=== PATIENT | male | born 1945 | race Caucasian/White ===

== ENCOUNTER 2018-12-18 09:10 | Emergency (ER) | payer MEDICARE, BC ==
[2018-12-18] MEDS ORDERED: Aspirin 81 MG Tab.Chew PO ONE (09:43)
--- NOTE | 2018-12-18 09:45 | EDM.PDOC ---
ED HPI GENERAL MEDICAL PROBLEM - General Chief Complaint: Chest Pain Stated Complaint: MILD CHEST PAIN Time Seen by Provider: 12/18/18 09:38 Source of Information: Reports: Patient, Family, RN Notes Reviewed History Limitations: Reports: No Limitations - History of Present Illness INITIAL COMMENTS - FREE TEXT/NARRATIVE: 73-year-old gentleman presents to emergency department today complaint of chest pain, he states his chest pain on and off for approximately 2 weeks at times is worse than others, does not use tobacco products strong family history of coronary artery disease brother with the bypass surgery in his 40s he describes no nausea no vomiting no shortness of breath admits to no cardiac issues in the past Chest Pain Score (Numeric/FACES): 2 - Related Data Allergies Allergy/AdvReac Type Severity Reaction Status Date / Time codeine Allergy Insomnia Verified 12/18/18 09:21 Home Meds: Home Meds Cholecalciferol (Vitamin D3) [Vitamin D3] 1,000 units PO DAILY 10/29/14 [History ] Fish Oil/[place]chance-3 Fatty Acids [Fish Oil 1,000 MG] 1 cap PO BID 10/29/14 [History] Loratadine 10 mg PO DAILY PRN 10/29/14 [History] Quinapril HCl [Accupril] 5 mg PO DAILY 10/29/14 [History] Rosuvastatin [Crestor] 5 mg PO BEDTIME 10/29/14 [History] Suvorexant [Belsomra] 10 mg PO BEDTIME PRN 10/29/14 [History] Vit C/E/Zn/Coppr/Lutein/Zeaxan [Preservision Areds 2 Softgel] 1 cap PO BID 10/29 [History] diphenhydrAMINE [Benadryl] 25 mg PO BEDTIME PRN 10/29/14 [History] Melatonin 5 mg PO BEDTIME 12/18/18 [History] Terazosin [Hytrin] 1 mg PO DAILY 12/18/18 [History] Past Medical History HEENT History: Reports: Cataract Oncologic (Cancer) History: Reports: Basal Cell Carcinoma, Squamous Cell Carcinoma Other Dermatologic History: face,chest, legs - Past Surgical History HEENT Surgical History: Reports: Tonsillectomy Other HEENT Surgeries/Procedures: skin cancers from face GI Surgical History: Reports: Hernia, Inguinal Male Surgical History: Reports: Vasectomy Musculoskeletal Surgical History: Reports: Arthroscopic Knee, Other (See Below) Other Musculoskeletal Surgeries/Procedures:: tendon torn right shoulder Social & Family History - Tobacco Use Smoking Status *Q: Never Smoker - Caffeine Use Caffeine Use: Reports: Coffee - Recreational Drug Use Recreational Drug Use: No ED ROS GENERAL - Review of Systems Review Of Systems: See Below Constitutional: Reports: No Symptoms HEENT: Reports: No Symptoms Respiratory: Reports: No Symptoms Cardiovascular: Reports: Chest Pain GI/Abdominal: Reports: No Symptoms ED EXAM, GENERAL - Physical Exam Exam: See Below Exam Limited By: No Limitations General Appearance: Alert, WD/WN, No Apparent Distress Respiratory/Chest: No Respiratory Distress, Lungs Clear, Normal Breath Sounds, No Accessory Muscle Use, Chest Non-Tender Cardiovascular: Regular Rate, Rhythm, No Murmur GI/Abdominal: Soft, Non-Tender Extremities: Normal Inspection, No Pedal Edema Course - Vital Signs Last Recorded V/S: Last Vital Signs Temp 95.2 F L 12/18/18 09:31 Pulse 72 12/18/18 10:46 Resp 13 12/18/18 10:46 BP 144/81 H 12/18/18 10:46 Pulse Ox 95 12/18/18 10:46 - Orders/Labs/Meds Orders: Active Orders 24 hr Category Date Time Status Cardiac Monitoring [RC] .As Directed Care 12/18/18 09:43 Active EKG Documentation Completion [RC] ASDIRECTED Care 12/18/18 09:44 Active EKG 12 Lead [EK] Stat Ther 12/18/18 09:44 Ordered Labs: Laboratory Tests 12/18/18 12/18/18 12/18/18 Range/Units 09:53 09:53 09:53 WBC 5.1 (4.5-11.0) K/uL RBC 4.98 (4.30-5.90) M/uL Hgb 14.9 (12.0-15.0) g/dL Hct 45.0 (40.0-54.0) % MCV 90 (80-98) fL MCH 30 (27-31) pg MCHC 33 (32-36) % Plt Count 170 (150-400) K/uL Neut % (Auto) 70 H (36-66) % Lymph % (Auto) 20 L (24-44) % [place] % (Auto) 10 H (2-6) % Eos % (Auto) 0 L (2-4) % Baso % (Auto) 0 (0-1) % D-Dimer, Quantitative 106 (0.0-400.0) ng/mL Sodium 140 (140-148) mmol/L Potassium 4.2 (3.6-5.2) mmol/L Chloride 102 (100-108) mmol/L Carbon Dioxide 30 (21-32) mmol/L Anion Gap 8.0 (5.0-14.0) mmol/L BUN 19 H (7-18) mg/dL Creatinine 1.0 (0.8-1.3) mg/dL Est Cr Clr Drug Dosing 70.07 mL/min Estimated GFR (MDRD) > 60 (>60) Glucose 102 (74-106) mg/dL Calcium 9.0 (8.5-10.1) mg/dL Total Bilirubin 1.1 H (0.2-1.0) mg/dL AST 24 (15-37) U/L ALT 32 (12-78) U/L Alkaline Phosphatase 77 (46-116) U/L CK-MB (CK-2) 3.3 (0-3.6) mg/mL Troponin I < 0.017 (0.000-0.056) ng/mL Total Protein 6.6 (6.4-8.2) g/dL Albumin 3.8 (3.4-5.0) g/dL Globulin 2.8 (2.3-3.5) g/dL Albumin/Globulin Ratio 1.4 (1.2-2.2) Meds: Medications Discontinued Medications Generic Name Dose Route Start Last Admin Trade Name Santana PRN Reason Stop Dose Admin Aspirin 324 mg 12/18/18 09:43 12/18/18 09:47 Aspirin PO 12/18/18 09:44 324 mg ONETIME ONE Administration Ketorolac Tromethamine 30 mg 12/18/18 10:55 12/18/18 10:58 Toradol IM 12/18/18 10:56 30 mg ONETIME ONE Administration Departure - Departure Time of Disposition: 11:20 Disposition: Home, Self-Care 01 Condition: Fair Clinical Impression: Atypical chest pain Referrals: PCP,None [Primary Care Provider] - Forms: ED Department Discharge Additional Instructions: Continue to use ibuprofen or Tylenol as needed for pain control, recommend follow-up primary care in the next 3-5 days for reevaluation consider stress testing. - My Orders Last 24 Hours: My Active Orders 12/18/18 09:43 Cardiac Monitoring [RC] .As Directed 12/18/18 09:44 EKG Documentation Completion [RC] ASDIRECTED EKG 12 Lead [EK] Stat - Assessment/Plan Last 24 Hours: My Active Orders 12/18/18 09:43 Cardiac Monitoring [RC] .As Directed 12/18/18 09:44 EKG Documentation Completion [RC] ASDIRECTED EKG 12 Lead [EK] Stat Plan: Assessment Acuity = acute Site and laterality = atypical chest pain Etiology = suspicious for muscle skeletal Manifestations = none Location of injury = Home Lab values = CBC, CMP, troponin, d-dimer within normal limits EKG demonstrates a normal sinus rhythm no signs of ischemia chest x-ray acute process Plan He had complete relief of his pain with Toradol recommended to follow up with his primary care in the next 3-5 days for further evaluation consider stress testing in the future This note was dictated using [employer] voice recognition software please call with any questions on syntax or grammar.
--- NOTE | 2018-12-18 10:14 | CRLCR ---
INDICATION: Chest pain COMPARISON: none TECHNIQUE: Two view chest. FINDINGS: The lungs are clear. There is no evidence of pneumothorax. The heart, mediastinum and pulmonary vessels are of normal size. There is no evidence of pleural fluid. IMPRESSION: Negative chest. Dictated by Romero Burgess MD @ 12/18/2018 10:13:02 AM Dictated by: Romero Burgess MD @ 12/18/2018 10:13:06 (Electronically Signed)
[2018-12-18 10:47] VITALS: BP 144/81; PULSE 72
[2018-12-18] MEDS ORDERED: Ketorolac 30 MG/ML SDV IM ONE (10:55)
== END 2018-12-18 11:27 | disposition home or self-care (01) ==
LOC: JP.ED 09:10
DX: R07.89 Other chest pain (principal); Z88.5 Allergy status to narcotic agent; Z79.899 Other long term (current) drug therapy; Z85.828 Personal history of other malignant neoplasm of skin
CPT/HCPCS: 36415; 71046; 80053; 82553; 84484; 85025; 85379; 93005; 96372; 99285; A9270; J1885; 93010; 99284

== ENCOUNTER 2021-01-07 14:09 | Emergency (ER) | payer MEDICARE, BC ==
--- NOTE | 2021-01-07 14:47 | EDM.PDOC ---
ED HPI GENERAL MEDICAL PROBLEM - General Chief Complaint: Neurological Problem Stated Complaint: DIZZY SPELLS Time Seen by Provider: 01/07/21 14:30 Source of Information: Reports: Patient, Old Records, RN History Limitations: Reports: No Limitations - History of Present Illness INITIAL COMMENTS - FREE TEXT/NARRATIVE: 75 yo male presents after 2 spells of light-headedness. The first was last night and the 2nd was earlier today. He is not currently having sx's. There was no spinning sensation or nausea. He was not aware of any rapid or slow pulse. He denies dark urine, melena or fever. No hx of the same. Here with his . Onset: Sudden Onset Date: 01/06/21 Duration: Other (seconds. ) Location: Reports: Head Quality: Reports: Other (no pain) Severity: Moderate Improves with: Reports: Other (sitting) Worsens with: Reports: Other (standing) Context: Reports: Other (See HPI) Associated Symptoms: Denies: Diaphoresis, Fever/Chills, Malaise, Nausea/Vomiting, Seizure, Shortness of Breath, Syncope Treatments RN FAMILY PRACTICE: Reports: Other (see below) (none) - Related Data Allergies Allergy/AdvReac Type Severity Reaction Status Date / Time codeine Allergy Insomnia Verified 01/07/21 14:41 Home Meds: Home Meds Cholecalciferol (Vitamin D3) [Vitamin D3] 1,000 units PO DAILY 10/29/14 [History] Loratadine 10 mg PO DAILY PRN 10/29/14 [History] Quinapril HCl [Accupril] 5 mg PO DAILY 10/29/14 [History] Rosuvastatin [Crestor] 5 mg PO BEDTIME 10/29/14 [History] Terazosin [Hytrin] 1 mg PO DAILY 12/18/18 [History] Acetaminophen [Tylenol] 650 mg PO ASDIRECTED 12/27/18 [History] Ibuprofen [Advil] 400 mg PO ASDIRECTED 12/27/18 [History] Past Medical History HEENT History: Reports: Cataract Oncologic (Cancer) History: Reports: Basal Cell Carcinoma, Squamous Cell Carci noma Other Dermatologic History: face,chest, legs - Past Surgical History HEENT Surgical History: Reports: Tonsillectomy Other HEENT Surgeries/Procedures: skin cancers from face GI Surgical History: Reports: Hernia, Inguinal Male Surgical History: Reports: Vasectomy Musculoskeletal Surgical History: Reports: Arthroscopic Knee, Other (See Below) Other Musculoskeletal Surgeries/Procedures:: tendon torn right shoulder Social & Family History - Caffeine Use Caffeine Use: Reports: Coffee ED ROS GENERAL - Review of Systems Review Of Systems: See Below Constitutional: Reports: No Symptoms HEENT: Reports: No Symptoms Respiratory: Reports: No Symptoms Cardiovascular: Reports: Lightheadedness. Denies: Palpitations Endocrine: Reports: No Symptoms GI/Abdominal: Reports: No Symptoms : Reports: No Symptoms Musculoskeletal: Reports: No Symptoms Skin: Reports: No Symptoms Neurological: Reports: No Symptoms Psychiatric: Reports: No Symptoms ED EXAM, NEURO - Physical Exam Exam: See Below Exam Limited By: No Limitations General Appearance: Alert, WD/WN, No Apparent Distress Eye Exam: Bilateral Eye: Normal Inspection Ears: Normal External Exam, Normal Canal, Hearing Grossly Normal, Normal TMs Nose: Normal Inspection, No Blood Throat/Mouth: Normal Inspection, Normal Lips, Normal Oropharynx, Normal Voice, No Airway Compromise Head Exam: Atraumatic, Normocephalic Neck: Normal Inspection Respiratory/Chest: No Respiratory Distress, Lungs Clear, Normal Breath Sounds, No Accessory Muscle Use Cardiovascular: Regular Rate, Rhythm, No Edema GI/Abdominal: Soft, Non-Tender Neurological: Alert, Normal Mood/Affect, CN II-XII Intact, No Motor/Sensory Deficits, Oriented x 3 Back Exam: No: CVA Tenderness (R), CVA Tenderness (L) Extremities: Normal Inspection, Normal Range of Motion, Non-Tender, No Pedal Edema Psychiatric: Normal Affect, Normal Mood Skin Exam: Warm, Dry, Intact, Normal Color, No Rash Course - Vital Signs Last Recorded V/S: Last Vital Signs Temp 36.3 C 01/07/21 14:48 Pulse 71 01/07/21 15:00 Resp 12 01/07/21 15:00 BP 129/68 01/07/21 15:00 Pulse Ox 93 L 01/07/21 15:00 Orthostatic Blood Pressure [ 128/71 Standing] Orthostatic Blood Pressure [ 124/71 Sitting] Orthostatic Blood Pressure [ 120/66 Supine] - Orders/Labs/Meds Orders: Active Orders 24 hr Category Date Time Status Cardiac Monitoring [RC] .As Directed Care 01/07/21 14:10 Active Orthostatic Vital Signs [RC] ASDIRECTED Care 01/07/21 14:41 Active Departure - Departure Time of Disposition: 15:07 Disposition: Home, Self-Care 01 Condition: Good Clinical Impression: Orthostasis - Discharge Information *PRESCRIPTION DRUG MONITORING PROGRAM REVIEWED*: Not Applicable *COPY OF PRESCRIPTION DRUG MONITORING REPORT IN PATIENT ADRI: Not Applicable Instructions: Orthostatic Hypotension Referrals: Cyrus Harrison Sr, MD [Primary Care Provider] - Forms: ED Department Discharge Additional Instructions: Drink enough fluids to keep your urine light yellow in color. Get up slowly from sitting or lying to standing to avoid light-headedness. Recheck if worse. Sepsis Event Note (ED) - Focused Exam Vital Signs: Vital Signs Temp Pulse Resp BP Pulse Ox 01/07/21 15:00 71 12 129/68 93 L 01/07/21 14:48 36.3 C 70 12 127/64 95 01/07/21 14:29 36.3 C 70 12 127/64 95 - My Orders Last 24 Hours: My Active Orders 01/07/21 14:10 Cardiac Monitoring [RC] .As Directed 01/07/21 14:41 Orthostatic Vital Signs [RC] ASDIRECTED - Assessment/Plan Last 24 Hours: My Active Orders 01/07/21 14:10 Cardiac Monitoring [RC] .As Directed 01/07/21 14:41 Orthostatic Vital Signs [RC] ASDIRECTED
[2021-01-07 15:01] VITALS: BP 129/68; PULSE 71
== END 2021-01-07 15:14 | disposition home or self-care (01) ==
LOC: JP.ED 14:09
DX: R42 Dizziness and giddiness (principal); Z88.5 Allergy status to narcotic agent; Z79.899 Other long term (current) drug therapy
CPT/HCPCS: 99283